=== PATIENT | female | born 1945 | race Caucasian/White ===

== ENCOUNTER 2021-12-29 21:33 | Emergency (ER) | payer OTHER ==
[~2021-12-29] VITALS: Ht 157.5 cm; Wt 63.5 kg
[2021-12-29 23:31] LABS: Basophils # (auto) 0 10 ^3/uL (0-0.2); Basophils % (auto) 0.5 % (0.0-2.0); Eosinophils # (auto) 0.2 10 ^3/uL (0-0.8); Eosinophils % (auto) 2.1 % (0.0-7.0); Hematocrit 36.6 % (36.0-46.0); Hemoglobin 12.2 g/dL (12.2-16.2); Lymphocytes # (auto) 1.9 10 ^3/uL (0.4-5.4); Lymphocytes % (auto) 25.5 % (10.0-50.0); Mean Corpuscular Hemoglobin 30.5 pg (28.0-32.0); Mean Corpuscular Hgb Conc. 33.4 g/dL (32.0-36.0); Mean Corpuscular Volume 91.3 fL (80.0-100.0); Monocytes # (auto) 0.6 10 ^3/uL (0-1.3); Monocytes % (auto) 7.9 % (0.0-12.0); Neutrophils # (auto) 4.8 10 ^3/uL (1.6-8.6); Nucleated Red Blood Cells % 0.1 %; Red Blood Cells 4.01 10^6/uL (4.0-5.20); Red Cell Distribution Width 13.8 % (11.8-14.3); White Blood Cell 7.5 10^3/uL (4.4-10.8)
[2021-12-29] MEDS ORDERED: HYDROcodone-ACET 5/325MG TAB PO ONE (23:45)
[2021-12-29 23:48] LABS: Calcium 8.7 mg/dL (8.5-10.1); Potassium 4.1 mmol/L (3.5-5.1)
[2021-12-29 23:50] LABS: BUN/Creatinine Ratio 37.5
[2021-12-29 23:55] LABS: Bilirubin, Total 0.3 mg/dL (0.2-1.0); Total Protein 6.7 g/dL (6.4-8.2)
[2021-12-30 01:31] LABS: Urine Bacteria FEW /hpf (None Seen); Urine Blood Negative /uL (Negative); Urine Hyaline Cast FEW /lpf (0 - 2); Urine Specific Gravity 1.031 (1.001-1.035); Urine WBC 25 /hpf (0 - 5)
[2021-12-30] MEDS ORDERED: MORPHINE SULFATE INJECTION 2 MG/ML SYRG IV ONE (02:00)
[2021-12-30] MEDS ORDERED: HYDROcodone-ACET 7.5/325MG TAB PO ONE (09:30)
[2021-12-30 11:49] VITALS: BP 130/58
== END 2021-12-30 18:04 | disposition home or self-care (01) ==
LOC: EDBD 21:33 → ER 21:35
DX: R07.89 Other chest pain (principal); I10 Essential (primary) hypertension; E11.9 Type 2 diabetes mellitus without complications; E78.5 Hyperlipidemia, unspecified; J45.909 Unspecified asthma, uncomplicated; Z88.8 Allergy status to other drugs, medicaments and biological substances
CPT/HCPCS: 36415; 71045; 80053; 81001; 83880; 84484; 85025; 85379; 93005; 96374; 99285; J2270

== ENCOUNTER 2022-01-13 21:49 | Inpatient (IN) | payer OTHER ==
[~2022-01-13] VITALS: Ht 167.6 cm; Wt 73.9 kg
[2022-01-14] MEDS ORDERED: DOCUSATE SOD 100 MG CAP PO PRN (04:15)
[2022-01-14] MEDS ORDERED: ACETAMINOPHEN 325 MG TAB PO PRN (04:15)
[2022-01-14] MEDS ORDERED: SODIUM CHLORIDE 0.9% 1,000 ML IV SCH (04:15)
[2022-01-14] MEDS ORDERED: HYDROcodone-ACET 5/325MG TAB PO PRN (04:15)
[2022-01-14] MEDS ORDERED: DEXTROSE (50%) 50ML SYRG IV PRN (04:15)
[2022-01-14] MEDS: MORPHINE SULFATE 4 MG/ML SYR/VIAL IV PRN ×2 (04:55→09:57)
[2022-01-14] MEDS: ONDANSETRON HCL 4 MG/2 ML VIAL IV PRN (04:56)
[2022-01-14 05:04] LABS: Basophils # (auto) 0.1 10 ^3/uL (0-0.2); Basophils % (auto) 0.8 % (0.0-2.0); Eosinophils # (auto) 0.2 10 ^3/uL (0-0.8); Eosinophils % (auto) 2.2 % (0.0-7.0); Hematocrit 33.3 % (36.0-46.0); Hemoglobin 11.2 g/dL (12.2-16.2); Lymphocytes # (auto) 2.5 10 ^3/uL (0.4-5.4); Lymphocytes % (auto) 34.7 % (10.0-50.0); Mean Corpuscular Hemoglobin 30.5 pg (28.0-32.0); Mean Corpuscular Hgb Conc. 33.7 g/dL (32.0-36.0); Mean Corpuscular Volume 90.7 fL (80.0-100.0); Monocytes # (auto) 0.7 10 ^3/uL (0-1.3); Monocytes % (auto) 9.1 % (0.0-12.0); Neutrophils # (auto) 3.8 10 ^3/uL (1.6-8.6); Neutrophils % (auto) 53.2 % (37.0-80.0); Red Blood Cells 3.67 10^6/uL (4.0-5.20); Red Cell Distribution Width 14.3 % (11.8-14.3); White Blood Cell 7.2 10^3/uL (4.4-10.8)
[2022-01-14 05:14] LABS: Albumin 2.6 g/dL (3.4-5.0); BUN/Creatinine Ratio 43.1; Potassium 3.4 mmol/L (3.5-5.1)
[2022-01-14 05:17] LABS: Bilirubin, Total 0.4 mg/dL (0.2-1.0); Total Protein 5.9 g/dL (6.4-8.2)
[2022-01-14 05:18] LABS: INR 1.01 (0.9-1.15)
[2022-01-14] MEDS: ACCU-CHEK COMFORT CURVE STRIP VI SCH ×3 (07:46→18:00)
[2022-01-14] MEDS: InsuLIN REG 1unit/0.01ml Soln (100units/ml) SC SCH ×3 (07:48→18:44)
[2022-01-14 09:00] VITALS: BP 160/80
[2022-01-14] MEDS: PANTOPRAZOLE 40 MG TAB PO SCH (09:55)
[2022-01-14] MEDS: HEPARIN SODIUM (PORCINE) 5000 UNITS/ML 1ML VIAL SC SCH ×2 (09:59→23:16)
[2022-01-14] MEDS ORDERED: HYDROcodone-ACET 10/325MG TAB PO PRN (12:45)
[2022-01-14 13:00] VITALS: BP 157/51
[2022-01-14] MEDS ORDERED: POTASSIUM CHL 20 Meq TABLET PO ONE (13:45)
[2022-01-14] MEDS ORDERED: IBUPROFEN 400 MG TAB PO SCH (14:00)
[2022-01-14] MEDS: IBUPROFEN 400 MG TAB PO SCH ×2 (16:38→23:10)
[2022-01-14 17:14] VITALS: BP 158/68
[2022-01-14] MEDS ORDERED: KETOROLAC TROMETH 30 MG/ML 1ML VIAL IV SCH (18:00)
[2022-01-14] MEDS: OXYCODONE W/ ACETAMINOPHEN 5/325MG TABLET PO PRN (19:00)
[2022-01-14 20:00] VITALS: BP 157/68
[2022-01-14 21:20] LABS: Urine Bacteria NONE SEEN /hpf (None Seen); Urine Blood Negative /uL (Negative); Urine Mucus FEW (None Seen); Urine Specific Gravity 1.029 (1.001-1.035); Urine WBC 56 /hpf (0 - 5)
[2022-01-14 22:00] VITALS: BP 157/68
[2022-01-15] MEDS: InsuLIN REG 1unit/0.01ml Soln (100units/ml) SC SCH ×5 (00:59→23:24)
[2022-01-15 04:38] VITALS: BP 143/70
[2022-01-15] MEDS: IBUPROFEN 400 MG TAB PO SCH ×3 (05:59→22:02)
[2022-01-15] MEDS: ACCU-CHEK COMFORT CURVE STRIP VI SCH ×5 (06:09→23:24)
[2022-01-15 07:16] LABS: Basophils # (auto) 0.2 10 ^3/uL (0-0.2); Basophils % (auto) 3.5 % (0.0-2.0); Eosinophils # (auto) 0.2 10 ^3/uL (0-0.8); Eosinophils % (auto) 3.6 % (0.0-7.0); Hematocrit 32.2 % (36.0-46.0); Hemoglobin 11.1 g/dL (12.2-16.2); Lymphocytes # (auto) 1.6 10 ^3/uL (0.4-5.4); Lymphocytes % (auto) 31.7 % (10.0-50.0); Mean Corpuscular Hemoglobin 31.2 pg (28.0-32.0); Mean Corpuscular Hgb Conc. 34.4 g/dL (32.0-36.0); Mean Corpuscular Volume 90.7 fL (80.0-100.0); Monocytes # (auto) 0.4 10 ^3/uL (0-1.3); Monocytes % (auto) 8.7 % (0.0-12.0); Neutrophils # (auto) 2.7 10 ^3/uL (1.6-8.6); Neutrophils % (auto) 52.5 % (37.0-80.0); Nucleated Red Blood Cells % 0.1 %; Red Blood Cells 3.55 10^6/uL (4.0-5.20); Red Cell Distribution Width 14.2 % (11.8-14.3); White Blood Cell 5.1 10^3/uL (4.4-10.8)
[2022-01-15 07:35] LABS: Albumin 2.2 g/dL (3.4-5.0); Calcium 8.2 mg/dL (8.5-10.1); Potassium 3.6 mmol/L (3.5-5.1)
[2022-01-15 07:39] LABS: BUN/Creatinine Ratio 48.9; Bilirubin, Total 0.3 mg/dL (0.2-1.0); Total Protein 5.3 g/dL (6.4-8.2)
[2022-01-15] MEDS: OXYCODONE W/ ACETAMINOPHEN 5/325MG TABLET PO PRN ×3 (07:46→22:05)
[2022-01-15] MEDS: PANTOPRAZOLE 40 MG TAB PO SCH (10:00)
[2022-01-15] MEDS: HEPARIN SODIUM (PORCINE) 5000 UNITS/ML 1ML VIAL SC SCH ×2 (10:41→22:07)
[2022-01-15] MEDS ORDERED: cefTRIAXone 1GM/50ML D5W 50 ML IV ONE (11:45)
[2022-01-15] MEDS ORDERED: QUEtiapine FUMARATE 25 MG TAB PO ONE (11:45)
[2022-01-15 13:00] VITALS: BP 157/74
[2022-01-15 16:00] VITALS: BP 155/70
[2022-01-15 22:00] VITALS: BP 154/68
[2022-01-16] MEDS: OXYCODONE W/ ACETAMINOPHEN 5/325MG TABLET PO PRN ×5 (04:47→22:46)
[2022-01-16 05:00] VITALS: BP 150/77
[2022-01-16] MEDS: InsuLIN REG 1unit/0.01ml Soln (100units/ml) SC SCH ×3 (06:00→18:25)
[2022-01-16] MEDS: ACCU-CHEK COMFORT CURVE STRIP VI SCH ×3 (06:29→18:23)
[2022-01-16] MEDS: IBUPROFEN 400 MG TAB PO SCH ×3 (06:29→21:00)
[2022-01-16 08:33] VITALS: BP 189/71
[2022-01-16] MEDS: cefTRIAXone 1GM/50ML D5W 50 ML IV SCH (09:40)
[2022-01-16] MEDS: PANTOPRAZOLE 40 MG TAB PO SCH (09:40)
[2022-01-16] MEDS: hydrALAZINE HCL 20 MG/ML VL IV PRN (09:41)
[2022-01-16] MEDS: HEPARIN SODIUM (PORCINE) 5000 UNITS/ML 1ML VIAL SC SCH ×2 (09:45→21:01)
[2022-01-16 12:00] VITALS: BP 136/72
[2022-01-16] MEDS: QUEtiapine FUMARATE 25 MG TAB PO SCH (21:00)
[2022-01-16 22:00] VITALS: BP 149/63
[2022-01-17] MEDS: ACCU-CHEK COMFORT CURVE STRIP VI SCH ×5 (00:11→23:36)
[2022-01-17] MEDS: InsuLIN REG 1unit/0.01ml Soln (100units/ml) SC SCH ×5 (00:24→23:38)
[2022-01-17 05:00] VITALS: BP 150/62
[2022-01-17] MEDS: IBUPROFEN 400 MG TAB PO SCH ×3 (05:39→21:38)
[2022-01-17] MEDS: OXYCODONE W/ ACETAMINOPHEN 5/325MG TABLET PO PRN ×4 (05:40→20:56)
[2022-01-17 09:00] VITALS: BP 148/63
[2022-01-17] MEDS: PANTOPRAZOLE 40 MG TAB PO SCH (09:06)
[2022-01-17] MEDS: cefTRIAXone 1GM/50ML D5W 50 ML IV SCH (09:06)
[2022-01-17] MEDS: HEPARIN SODIUM (PORCINE) 5000 UNITS/ML 1ML VIAL SC SCH ×2 (09:15→21:40)
[2022-01-17 12:39] VITALS: BP 173/68
[2022-01-17 16:10] VITALS: BP 149/104
[2022-01-17] MEDS ORDERED: HEPARIN SODIUM (PORCINE) 5000 UNITS/ML 1ML VIAL ONE (20:05)
[2022-01-17] MEDS: QUEtiapine FUMARATE 25 MG TAB PO SCH (21:38)
[2022-01-17 22:00] VITALS: BP 147/78
[2022-01-17] MEDS: TEMAZEPAM 15 MG CAP PO PRN (23:36)
[2022-01-18 05:00] VITALS: BP 134/55
[2022-01-18] MEDS: ACCU-CHEK COMFORT CURVE STRIP VI SCH ×4 (05:07→23:47)
[2022-01-18] MEDS: IBUPROFEN 400 MG TAB PO SCH ×3 (05:08→21:20)
[2022-01-18] MEDS: InsuLIN REG 1unit/0.01ml Soln (100units/ml) SC SCH ×4 (05:14→23:48)
[2022-01-18 08:00] VITALS: BP 184/96
[2022-01-18] MEDS: cefTRIAXone 1GM/50ML D5W 50 ML IV SCH (08:45)
[2022-01-18] MEDS: PANTOPRAZOLE 40 MG TAB PO SCH (08:45)
[2022-01-18] MEDS: HEPARIN SODIUM (PORCINE) 5000 UNITS/ML 1ML VIAL SC SCH ×2 (08:45→21:16)
[2022-01-18] MEDS: OXYCODONE W/ ACETAMINOPHEN 5/325MG TABLET PO PRN ×3 (08:48→21:20)
[2022-01-18 12:00] VITALS: BP 158/67
[2022-01-18 16:00] VITALS: BP 159/78
[2022-01-18] MEDS: QUEtiapine FUMARATE 25 MG TAB PO SCH (21:20)
[2022-01-18 21:48] VITALS: BP 172/80
[2022-01-18] MEDS: TEMAZEPAM 15 MG CAP PO PRN (22:56)
[2022-01-18] MEDS: hydrALAZINE HCL 20 MG/ML VL IV PRN (23:00)
[2022-01-19] MEDS ORDERED: DEXTROSE (50%) 50ML SYRG IV PRN (00:45)
[2022-01-19] MEDS: ACCU-CHEK COMFORT CURVE STRIP VI SCH ×5 (03:58→20:15)
[2022-01-19] MEDS: InsuLIN REG 1unit/0.01ml Soln (100units/ml) SC SCH ×5 (03:59→20:16)
[2022-01-19 05:30] VITALS: BP 128/67
[2022-01-19] MEDS: IBUPROFEN 400 MG TAB PO SCH ×3 (06:02→21:29)
[2022-01-19] MEDS: cefTRIAXone 1GM/50ML D5W 50 ML IV SCH (07:53)
[2022-01-19 08:22] VITALS: BP 148/69
[2022-01-19] MEDS: PANTOPRAZOLE 40 MG TAB PO SCH (10:18)
[2022-01-19] MEDS: HEPARIN SODIUM (PORCINE) 5000 UNITS/ML 1ML VIAL SC SCH ×2 (10:19→21:28)
[2022-01-19] MEDS: OXYCODONE W/ ACETAMINOPHEN 5/325MG TABLET PO PRN ×2 (10:39→18:34)
[2022-01-19 12:32] VITALS: BP 134/54
[2022-01-19 16:28] VITALS: BP 163/76
[2022-01-19] MEDS: QUEtiapine FUMARATE 25 MG TAB PO SCH (21:28)
[2022-01-19] MEDS: TEMAZEPAM 15 MG CAP PO PRN (21:28)
[2022-01-19 22:50] VITALS: BP 155/76
[2022-01-20] MEDS: ACCU-CHEK COMFORT CURVE STRIP VI SCH ×6 (00:17→20:00)
[2022-01-20] MEDS: InsuLIN REG 1unit/0.01ml Soln (100units/ml) SC SCH ×6 (00:25→20:00)
[2022-01-20] MEDS: OXYCODONE W/ ACETAMINOPHEN 5/325MG TABLET PO PRN ×3 (03:25→19:51)
[2022-01-20 05:03] VITALS: BP 128/58
[2022-01-20] MEDS: IBUPROFEN 400 MG TAB PO SCH ×3 (05:04→21:53)
[2022-01-20] MEDS: cefTRIAXone 1GM/50ML D5W 50 ML IV SCH (08:52)
[2022-01-20] MEDS: PANTOPRAZOLE 40 MG TAB PO SCH (08:52)
[2022-01-20] MEDS: HEPARIN SODIUM (PORCINE) 5000 UNITS/ML 1ML VIAL SC SCH ×2 (08:53→21:53)
[2022-01-20 09:00] VITALS: BP 138/81
[2022-01-20 13:00] VITALS: BP 168/69
[2022-01-20 17:00] VITALS: BP 145/76
[2022-01-20] MEDS: QUEtiapine FUMARATE 25 MG TAB PO SCH (21:53)
[2022-01-21] MEDS: OXYCODONE W/ ACETAMINOPHEN 5/325MG TABLET PO PRN ×4 (00:18→21:00)
[2022-01-21] MEDS: IBUPROFEN 400 MG TAB PO SCH ×4 (01:22→21:33)
[2022-01-21] MEDS: HEPARIN SODIUM (PORCINE) 5000 UNITS/ML 1ML VIAL SC SCH ×3 (01:23→21:01)
[2022-01-21] MEDS: InsuLIN REG 1unit/0.01ml Soln (100units/ml) SC SCH ×8 (01:24→23:46)
[2022-01-21] MEDS: ACCU-CHEK COMFORT CURVE STRIP VI SCH ×8 (01:24→23:43)
[2022-01-21] MEDS: TEMAZEPAM 15 MG CAP PO PRN (01:29)
[2022-01-21] MEDS: PANTOPRAZOLE 40 MG TAB PO SCH (09:23)
[2022-01-21] MEDS: cefTRIAXone 1GM/50ML D5W 50 ML IV SCH (09:23)
[2022-01-21 16:10] VITALS: BP 129/60
[2022-01-21] MEDS: ONDANSETRON HCL 4 MG/2 ML VIAL IV PRN (19:01)
[2022-01-21] MEDS: QUEtiapine FUMARATE 25 MG TAB PO SCH (21:00)
[2022-01-21 22:00] VITALS: BP 161/56
[2022-01-21 23:45] VITALS: BP 155/60
[2022-01-22] MEDS: ACCU-CHEK COMFORT CURVE STRIP VI SCH ×5 (04:12→20:00)
[2022-01-22] MEDS: OXYCODONE W/ ACETAMINOPHEN 5/325MG TABLET PO PRN ×3 (04:13→16:36)
[2022-01-22] MEDS: InsuLIN REG 1unit/0.01ml Soln (100units/ml) SC SCH ×5 (04:17→20:00)
[2022-01-22 05:30] VITALS: BP 160/55
[2022-01-22] MEDS: IBUPROFEN 400 MG TAB PO SCH ×3 (06:23→22:00)
[2022-01-22 06:48] LABS: Basophils # (auto) 0 10 ^3/uL (0-0.2); Basophils % (auto) 0.8 % (0.0-2.0); Eosinophils # (auto) 0.3 10 ^3/uL (0-0.8); Eosinophils % (auto) 6.7 % (0.0-7.0); Hematocrit 31.5 % (36.0-46.0); Hemoglobin 10.6 g/dL (12.2-16.2); Lymphocytes # (auto) 1.5 10 ^3/uL (0.4-5.4); Lymphocytes % (auto) 36.7 % (10.0-50.0); Mean Corpuscular Hemoglobin 30.8 pg (28.0-32.0); Mean Corpuscular Hgb Conc. 33.7 g/dL (32.0-36.0); Mean Corpuscular Volume 91.4 fL (80.0-100.0); Monocytes # (auto) 0.3 10 ^3/uL (0-1.3); Monocytes % (auto) 7.8 % (0.0-12.0); Neutrophils # (auto) 1.9 10 ^3/uL (1.6-8.6); Nucleated Red Blood Cells % 0.1 %; Red Blood Cells 3.44 10^6/uL (4.0-5.20); Red Cell Distribution Width 13.9 % (11.8-14.3)
[2022-01-22 06:57] LABS: Calcium 8.5 mg/dL (8.5-10.1); Magnesium 2.1 mg/dL (1.6-2.6); Potassium 3.8 mmol/L (3.5-5.1)
[2022-01-22 06:59] LABS: BUN/Creatinine Ratio 43.2
[2022-01-22 07:02] LABS: Bilirubin, Total 0.2 mg/dL (0.2-1.0); Total Protein 5.1 g/dL (6.4-8.2)
[2022-01-22 09:00] VITALS: BP 166/68
[2022-01-22] MEDS: HEPARIN SODIUM (PORCINE) 5000 UNITS/ML 1ML VIAL SC SCH ×2 (10:08→22:00)
[2022-01-22] MEDS: cefTRIAXone 1GM/50ML D5W 50 ML IV SCH (10:09)
[2022-01-22] MEDS: QUEtiapine FUMARATE 25 MG TAB PO SCH ×2 (10:09→22:00)
[2022-01-22] MEDS: PANTOPRAZOLE 40 MG TAB PO SCH (10:09)
[2022-01-22 12:53] VITALS: BP 155/64
[2022-01-22] MEDS: LISINOPRIL 20 MG TAB PO SCH (18:16)
[2022-01-22 22:00] VITALS: BP 128/78
[2022-01-22] MEDS: TEMAZEPAM 15 MG CAP PO PRN (23:58)
[2022-01-23] MEDS: ACCU-CHEK COMFORT CURVE STRIP VI SCH ×6 (00:11→20:00)
[2022-01-23] MEDS: InsuLIN REG 1unit/0.01ml Soln (100units/ml) SC SCH ×6 (04:19→20:51)
[2022-01-23 05:00] VITALS: BP 157/76
[2022-01-23] MEDS: IBUPROFEN 400 MG TAB PO SCH ×3 (06:07→22:16)
[2022-01-23] MEDS: OXYCODONE W/ ACETAMINOPHEN 5/325MG TABLET PO PRN ×2 (06:08→15:10)
[2022-01-23] MEDS: PANTOPRAZOLE 40 MG TAB PO SCH (08:32)
[2022-01-23] MEDS: LISINOPRIL 20 MG TAB PO SCH (08:32)
[2022-01-23] MEDS: cefTRIAXone 1GM/50ML D5W 50 ML IV SCH (08:33)
[2022-01-23 09:00] VITALS: BP 150/74
[2022-01-23] MEDS: HEPARIN SODIUM (PORCINE) 5000 UNITS/ML 1ML VIAL SC SCH ×2 (09:28→22:00)
[2022-01-23] MEDS: QUEtiapine FUMARATE 25 MG TAB PO SCH ×2 (11:37→22:16)
[2022-01-23] MEDS ORDERED: LORazepam 2MG/ML-1ML VIAL IV ONE (13:00)
[2022-01-23] MEDS ORDERED: LORazepam 2MG/ML-1ML VIAL IV PRN (14:00)
[2022-01-23 14:52] VITALS: BP 150/75
[2022-01-23 17:02] VITALS: BP 163/86
[2022-01-23] MEDS: ATORVASTATIN 20 MG TAB PO SCH (21:38)
[2022-01-23 22:00] VITALS: BP 161/73
[2022-01-23 22:38] LABS: Cholesterol 194 mg/dL (< 200); Triglycerides 267 mg/dL (< 150)
[2022-01-23 22:40] LABS: HDL Cholesterol 42 mg/dL (40-59); LDL Cholesterol 114 mg/dL (< 100)
[2022-01-24] MEDS: InsuLIN REG 1unit/0.01ml Soln (100units/ml) SC SCH ×6 (01:11→21:48)
[2022-01-24] MEDS: ACCU-CHEK COMFORT CURVE STRIP VI SCH ×6 (04:00→21:51)
[2022-01-24] MEDS: IBUPROFEN 400 MG TAB PO SCH (06:00)
[2022-01-24 09:00] VITALS: BP 137/63
[2022-01-24] MEDS: cefTRIAXone 1GM/50ML D5W 50 ML IV SCH (09:09)
[2022-01-24] MEDS: LISINOPRIL 20 MG TAB PO SCH (10:00)
[2022-01-24] MEDS: PANTOPRAZOLE 40 MG TAB PO SCH (10:22)
[2022-01-24] MEDS: ASPirin 81 mg TAB PO SCH (10:22)
[2022-01-24] MEDS: QUEtiapine FUMARATE 25 MG TAB PO SCH ×2 (10:22→21:46)
[2022-01-24] MEDS: HEPARIN SODIUM (PORCINE) 5000 UNITS/ML 1ML VIAL SC SCH ×2 (10:41→21:50)
[2022-01-24 13:00] VITALS: BP 155/75
[2022-01-24] MEDS: OXYCODONE W/ ACETAMINOPHEN 5/325MG TABLET PO PRN ×2 (16:48→22:01)
[2022-01-24 17:00] VITALS: BP 152/65
[2022-01-24 20:00] VITALS: BP 150/85
[2022-01-24] MEDS ORDERED: HEPARIN SODIUM (PORCINE) 5000 UNITS/ML 1ML VIAL ONE (21:41)
[2022-01-24] MEDS: ATORVASTATIN 20 MG TAB PO SCH (21:46)
[2022-01-24 22:00] VITALS: BP 165/85
[2022-01-25] MEDS: ACCU-CHEK COMFORT CURVE STRIP VI SCH ×6 (00:12→20:52)
[2022-01-25] MEDS: OXYCODONE W/ ACETAMINOPHEN 5/325MG TABLET PO PRN ×2 (02:52→08:12)
[2022-01-25] MEDS: InsuLIN REG 1unit/0.01ml Soln (100units/ml) SC SCH ×6 (04:47→21:02)
[2022-01-25 05:00] VITALS: BP 160/62
[2022-01-25 06:17] LABS: Basophils # (auto) 0.1 10 ^3/uL (0-0.2); Basophils % (auto) 1.1 % (0.0-2.0); Eosinophils # (auto) 0.3 10 ^3/uL (0-0.8); Eosinophils % (auto) 6.1 % (0.0-7.0); Hematocrit 35.1 % (36.0-46.0); Hemoglobin 11.7 g/dL (12.2-16.2); Lymphocytes # (auto) 2.1 10 ^3/uL (0.4-5.4); Lymphocytes % (auto) 38.7 % (10.0-50.0); Mean Corpuscular Hemoglobin 30.5 pg (28.0-32.0); Mean Corpuscular Hgb Conc. 33.4 g/dL (32.0-36.0); Mean Corpuscular Volume 91.3 fL (80.0-100.0); Monocytes # (auto) 0.3 10 ^3/uL (0-1.3); Monocytes % (auto) 6.2 % (0.0-12.0); Neutrophils # (auto) 2.6 10 ^3/uL (1.6-8.6); Neutrophils % (auto) 47.9 % (37.0-80.0); Nucleated Red Blood Cells % 0.1 %; Red Blood Cells 3.84 10^6/uL (4.0-5.20); Red Cell Distribution Width 13.9 % (11.8-14.3); White Blood Cell 5.5 10^3/uL (4.4-10.8)
[2022-01-25 06:28] LABS: Albumin 2.3 g/dL (3.4-5.0); Calcium 8.7 mg/dL (8.5-10.1); Magnesium 2.1 mg/dL (1.6-2.6); Potassium 3.6 mmol/L (3.5-5.1)
[2022-01-25 06:31] LABS: BUN/Creatinine Ratio 28.9; Bilirubin, Total 0.2 mg/dL (0.2-1.0); Phosphorus 3.2 mg/dL (2.5-4.90); Total Protein 5.9 g/dL (6.4-8.2)
[2022-01-25 08:59] VITALS: BP 120/81
[2022-01-25] MEDS: cefTRIAXone 1GM/50ML D5W 50 ML IV SCH (09:32)
[2022-01-25] MEDS: QUEtiapine FUMARATE 25 MG TAB PO SCH ×3 (09:33→22:46)
[2022-01-25] MEDS: PANTOPRAZOLE 40 MG TAB PO SCH (09:33)
[2022-01-25] MEDS: LISINOPRIL 20 MG TAB PO SCH (09:33)
[2022-01-25] MEDS: ASPirin 81 mg TAB PO SCH (09:33)
[2022-01-25] MEDS: HEPARIN SODIUM (PORCINE) 5000 UNITS/ML 1ML VIAL SC SCH ×2 (09:34→21:48)
[2022-01-25] MEDS: BENZTROPINE MESY 0.5 MG TAB PO SCH ×3 (10:00→22:46)
[2022-01-25 17:20] VITALS: BP 173/98
[2022-01-25 20:00] VITALS: BP 140/84
[2022-01-25 21:17] VITALS: BP 140/84
[2022-01-25] MEDS: ATORVASTATIN 20 MG TAB PO SCH ×2 (21:41→22:45)
[2022-01-25] MEDS: TEMAZEPAM 15 MG CAP PO PRN ×2 (21:49→22:46)
[2022-01-26] MEDS: InsuLIN REG 1unit/0.01ml Soln (100units/ml) SC SCH ×6 (04:00→20:00)
[2022-01-26] MEDS: ACCU-CHEK COMFORT CURVE STRIP VI SCH ×6 (04:00→20:00)
[2022-01-26 05:22] VITALS: BP 166/77
[2022-01-26 08:00] VITALS: BP 192/70
[2022-01-26] MEDS: PANTOPRAZOLE 40 MG TAB PO SCH (08:33)
[2022-01-26] MEDS: ASPirin 81 mg TAB PO SCH (08:33)
[2022-01-26] MEDS: LISINOPRIL 20 MG TAB PO SCH (08:33)
[2022-01-26] MEDS: HEPARIN SODIUM (PORCINE) 5000 UNITS/ML 1ML VIAL SC SCH ×2 (08:34→22:12)
[2022-01-26 10:23] LABS: Folate (Folic Acid) 22.19 ng/mL (5.38-24)
[2022-01-26 12:00] VITALS: BP 136/54
[2022-01-26 16:00] VITALS: BP 152/93
[2022-01-26 21:00] VITALS: BP 135/65
[2022-01-26 21:45] VITALS: BP 135/65
[2022-01-26] MEDS: BENZTROPINE MESY 0.5 MG TAB PO SCH (22:00)
[2022-01-27] MEDS: ACCU-CHEK COMFORT CURVE STRIP VI SCH ×6 (04:00→20:09)
[2022-01-27] MEDS: InsuLIN REG 1unit/0.01ml Soln (100units/ml) SC SCH ×6 (04:00→20:21)
[2022-01-27 05:00] VITALS: BP 140/63
[2022-01-27] MEDS: PANTOPRAZOLE 40 MG TAB PO SCH (08:51)
[2022-01-27] MEDS: BENZTROPINE MESY 0.5 MG TAB PO SCH ×2 (08:51→22:00)
[2022-01-27] MEDS: ASPirin 81 mg TAB PO SCH (08:51)
[2022-01-27] MEDS: LISINOPRIL 20 MG TAB PO SCH (08:54)
[2022-01-27] MEDS: HEPARIN SODIUM (PORCINE) 5000 UNITS/ML 1ML VIAL SC SCH ×2 (08:55→22:37)
[2022-01-27 09:00] VITALS: BP 123/63
[2022-01-27 13:00] VITALS: BP 131/67
[2022-01-27] MEDS: HYDROcodone-ACET 7.5/325MG TAB PO PRN ×2 (13:49→20:04)
[2022-01-27 17:00] VITALS: BP 129/68
[2022-01-27 20:00] VITALS: BP 138/66
[2022-01-27 22:00] VITALS: BP 158/66
[2022-01-27] MEDS: QUEtiapine FUMARATE 25 MG TAB PO SCH (22:16)
[2022-01-27] MEDS: ATORVASTATIN 20 MG TAB PO SCH (22:16)
[2022-01-28] MEDS: ACCU-CHEK COMFORT CURVE STRIP VI SCH ×5 (00:43→16:00)
[2022-01-28] MEDS: InsuLIN REG 1unit/0.01ml Soln (100units/ml) SC SCH ×5 (00:48→16:00)
[2022-01-28] MEDS: HYDROcodone-ACET 7.5/325MG TAB PO PRN ×2 (00:52→04:54)
[2022-01-28 05:00] VITALS: BP 140/85
[2022-01-28 09:00] VITALS: BP 137/57
[2022-01-28] MEDS: PANTOPRAZOLE 40 MG TAB PO SCH (10:00)
[2022-01-28] MEDS: LISINOPRIL 20 MG TAB PO SCH (10:00)
[2022-01-28] MEDS: BENZTROPINE MESY 0.5 MG TAB PO SCH (10:00)
[2022-01-28] MEDS: HEPARIN SODIUM (PORCINE) 5000 UNITS/ML 1ML VIAL SC SCH (10:00)
[2022-01-28] MEDS: ASPirin 81 mg TAB PO SCH (10:00)
[2022-01-28 13:00] VITALS: BP 140/60
[2022-01-28 19:18] VITALS: BP 137/57
== END 2022-01-28 19:45 | DRG 562 ==
LOC: EDBD 21:49 → EDUNIT# 21:49 → ER 21:49 → OVERFLOW 01-14 04:06 → WEST WING 01-14 08:02
PROVIDERS: ADMIT Internal Medicine; ATTEND Internal Medicine
DX: S42.212A Unspecified displaced fracture of surgical neck of left humerus, initial encounter for closed fracture (principal); E43 Unspecified severe protein-calorie malnutrition; N39.0 Urinary tract infection, site not specified; R47.01 Aphasia; R45.851 Suicidal ideations; I10 Essential (primary) hypertension; J44.9 Chronic obstructive pulmonary disease, unspecified; E78.5 Hyperlipidemia, unspecified; J45.909 Unspecified asthma, uncomplicated; G89.29 Other chronic pain; Z20.822 Contact with and (suspected) exposure to COVID-19; F03.90 Unspecified dementia, unspecified severity, without behavioral disturbance, psychotic disturbance, mood disturbance, and anxiety; R26.9 Unspecified abnormalities of gait and mobility; E11.40 Type 2 diabetes mellitus with diabetic neuropathy, unspecified; F43.20 Adjustment disorder, unspecified; F60.89 Other specific personality disorders; Z88.8 Allergy status to other drugs, medicaments and biological substances; Z79.82 Long term (current) use of aspirin; Z79.899 Other long term (current) drug therapy; Z82.0 Family history of epilepsy and other diseases of the nervous system; Z68.26 Body mass index [BMI] 26.0-26.9, adult; Z90.710 Acquired absence of both cervix and uterus; W18.39XA Other fall on same level, initial encounter; Y93.89 Activity, other specified; Y92.098 Other place in other non-institutional residence as the place of occurrence of the external cause; Y99.8 Other external cause status
CPT/HCPCS: 36415; 70450; 71045; 73060; 80053; 80061; 81001; 82550; 82607; 82746; 82962; 83036; 83735; 84100; 84443; 85025; 85610; 87081; 93005; 93306; 93886; 96361; 96374; 97110; 97116; 97163; 97530; G0378; J0696; J1815; J2405